=== PATIENT | female | born 1990 | race African-American/Black ===

== ENCOUNTER 2016-11-05 14:32 | Emergency (ER) | payer MEDICAID ==
[~2016-11-05] VITALS: Ht 170.2 cm; Wt 59.1 kg
[2016-11-05 14:34] VITALS: TEMP 99.7
[2016-11-05] MEDS ORDERED: PHENERGAN 25 TA25 MG PO (15:29)
[2016-11-05 16:01] LABS: PH 6 (5-8); SQUAMOUS EPITHELIAL 0-2 /hpf; URINE APPEARANCE Clear; URINE BACTERIA None Seen /hpf; URINE BILIRUBIN Negative (NEGATIVE); URINE BLOOD Negative (NEGATIVE); URINE COLOR Yellow; URINE GLUCOSE Negative (NEGATIVE); URINE KETONE 1+ (NEGATIVE); URINE RBC 0-2 /hpf; URINE UROBILINOGEN Negative (NEGATIVE)
[2016-11-05] MEDS ORDERED: PRENATAL MVI PO (16:09)
[2016-11-05 16:52] VITALS: BP 112/71; PULSE 75
== END 2016-11-05 16:53 | disposition home or self-care (01) ==
LOC: COL.ER 14:32
PROVIDERS: Emergency Medicine
DX: O21.9 Vomiting of pregnancy, unspecified (principal); Z3A.01 Less than 8 weeks gestation of pregnancy

== ENCOUNTER 2017-05-02 12:18 | Outpatient (CLI) | payer MEDICAID ==
[~2017-05-02] VITALS: Ht 170.2 cm; Wt 66.8 kg
[~2017-05-02 12:18] MED LIST: PHENERGAN 25 TA25 MG PO; PRENATAL MVI PO
[2017-05-02 12:38] VITALS: BP 118/75; PULSE 67; TEMP 98.7
[2017-05-02 12:55] VITALS: BP 118/75; PULSE 67; TEMP 98.7
== END 2017-05-02 13:15 | disposition home or self-care (01) ==
LOC: LDRO 12:18
DX: Z34.03 Encounter for supervision of normal first pregnancy, third trimester (principal); Z3A.32 32 weeks gestation of pregnancy